=== PATIENT | female | born 1945 | race Caucasian/White ===

== ENCOUNTER 2020-02-15 06:08 | Day surgery (SDC) | payer OTHER | END 2020-02-15 13:10 | disposition home or self-care (01) | LOC: AMB-ENDOS 06:08 | PROVIDERS: ATTEND Colon & Rectal Surgery | DX: C19 Malignant neoplasm of rectosigmoid junction (principal); D12.0 Benign neoplasm of cecum; K62.7 Radiation proctitis; Z20.828 Contact with and (suspected) exposure to other viral communicable diseases ==

== ENCOUNTER 2020-08-08 07:24 | Day surgery (SDC) | payer OTHER | END 2020-08-08 12:55 | disposition home or self-care (01) | LOC: AMB-ENDOS 07:24 | PROVIDERS: ATTEND Colon & Rectal Surgery | DX: C21.1 Malignant neoplasm of anal canal (principal); Z20.822 Contact with and (suspected) exposure to COVID-19 ==

== ENCOUNTER 2022-08-19 10:27 | Inpatient (IN) | payer OTHER ==
[~2022-08-19] VITALS: Ht 149.9 cm; Wt 36.7 kg
[2022-08-20] MEDS ORDERED: BONIVA150 MG PO (15:57)
[2022-08-20] MEDS ORDERED: SYNTHROID50 MCG PO (15:57)
[2022-08-20] MEDS ORDERED: SIMVASTATIN40 MG PO (15:58)
[2022-08-28] MEDS ORDERED: LOPRESSOR25 MG PO (07:54)
[2022-08-28] MEDS ORDERED: AMIODARONE HCL200 MG PO (07:54)
[2022-08-28] MEDS ORDERED: ACETAMINOPHEN500 M2 PO (07:54)
== END 2022-08-28 14:12 | disposition home or self-care (01) | DRG 330 ==
LOC: SURG 08-24 07:52 → O/R 08-24 07:52 → SURH 08-24 11:00 → SURG 08-24 13:48 → SURH 08-24 18:30 → O/R 08-25 08:06 → SURG 08-25 09:53
PROVIDERS: ADMIT Colon & Rectal Surgery; ATTEND Colon & Rectal Surgery
PROC: 0D1L0Z4 Bypass Transverse Colon to Cutaneous, Open Approach (ICD-10-PCS; principal; 2022-08-24 18:30)
PROC: 4A12X4Z Monitoring of Cardiac Electrical Activity, External Approach (ICD-10-PCS; 2022-08-25)
PROC: B24BZZZ Ultrasonography of Heart with Aorta (ICD-10-PCS; 2022-08-25)
DX: C20 Malignant neoplasm of rectum (principal); K92.1 Melena; K64.2 Third degree hemorrhoids; I48.91 Unspecified atrial fibrillation; D64.9 Anemia, unspecified; Z20.822 Contact with and (suspected) exposure to COVID-19; N73.6 Female pelvic peritoneal adhesions (postinfective); N99.4 Postprocedural pelvic peritoneal adhesions